=== PATIENT | female | born 1960 | race Caucasian/White ===

== ENCOUNTER 2021-02-23 14:37 | Emergency (ER) | payer OTHER ==
[~2021-02-23] VITALS: Ht 165.1 cm; Wt 72.6 kg
[2021-02-23 14:45] VITALS: BP_SYST 147
--- NOTE | 2021-02-23 14:45 | NUR ---
BROUGHT BACK TO BED #5 AND TRIAGED, REPORT GIVEN TO MINA
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
[2021-02-23] MEDS ORDERED: HYDROcodone/ACETAMIN 5-325 MG TAB (NORCO/ VICODIN) PO ONE (16:15)
--- NOTE | 2021-02-23 16:20 | NUR ---
ICE PACK FROM FIELD DISOLVED, NEW ICE PCK GIVEN. MEDICATED ORDERED. FRIEND WILL BE DRIVING HER HOME.
[2021-02-23] MEDS ORDERED: ACET-2634 PO (17:08)
[2021-02-23] MEDS ORDERED: IBUP-1619 PO (17:09)
[2021-02-23] MEDS ORDERED: HYDR-3917 PO (17:11)
[2021-02-23 17:38] VITALS: BP_SYST 133
--- NOTE | 2021-02-23 17:39 | NUR ---
Patient given written and verbal discharge instructions and verbalizes understanding. ER MD discussed with patient the results and treatment provided. Patient in stable condition. ID arm band removed. Rx of NORCO, IUPROFEN, TYLEOL given. Patient educated on pain management and to follow up with PMD. Pain Scale . Opportunity for questions provided and answered. Medication side effect fact sheet provided.
== END 2021-02-23 17:39 | disposition home or self-care (01) ==
LOC: SED 14:37
DX: S52.501A Unspecified fracture of the lower end of right radius, initial encounter for closed fracture (principal); S62.001A Unspecified fracture of navicular [scaphoid] bone of right wrist, initial encounter for closed fracture; Z79.899 Other long term (current) drug therapy; W18.39XA Other fall on same level, initial encounter; Y93.89 Activity, other specified; Y92.89 Other specified places as the place of occurrence of the external cause; Y99.8 Other external cause status
CPT/HCPCS: 99283